=== PATIENT | male | born 1985 | race Caucasian/White ===

== ENCOUNTER 2016-08-23 10:32 | Inpatient (IN) | payer OTHER ==
[~2016-08-23] VITALS: Ht 170.2 cm; Wt 100.0 kg
[2016-08-23] MEDS ORDERED: MoRPHine SULFATE 10 MG/ML CARP/VIAL IV STA (10:53)
[2016-08-23] MEDS ORDERED: ONDANSETRON INJ 2 MG/ML 2 ML VIAL IV STA ×2 (10:53→12:10)
[2016-08-23 11:04] LABS: BASO % 0.6 %; BASO ABS # 0.05 K/uL (0-0.2); COMPLETE YES; EOS % 4.6 %; HEMATOCRIT 46.9 % (42-52); IG% 0.2 %; LYMPH % 27.3 %; LYMPH ABS # 2.26 K/uL (1.2-3.4); MEAN CELL VOLUME 85.4 fL (80-100); MEAN CORPUSCULAR HEMOGLOBIN 30.4 pg (25-34); MEAN CORPUSCULAR HGB CONC 35.6 g/dl (32-36); MEAN PLATELET VOLUME 9.4 fL (7.4-10.4); MONO % 5.3 %; PLATELET COUNT 315 K/uL (130-400); RED BLOOD COUNT 5.49 M/uL (4.7-6.1); WHITE BLOOD COUNT 8.27 K/uL (4.8-10.8)
[2016-08-23 11:12] LABS: PROTHROMBIN TIME (PATIENT) 10.8 SECONDS (9.0-12.0)
[2016-08-23 11:15] LABS: CALCIUM 9.4 mg/dl (8.5-10.1); CREATININE 1.2 mg/dl (0.60-1.40); POTASSIUM 3.9 mmol/L (3.5-5.1)
--- NOTE | 2016-08-23 11:53 | DIAGNOSTIC IMAGING REPORT ---
Right upper quadrant ultrasound GALLBLADDER-ABD LIMITED CLINICAL HISTORY: ABDOMINAL PAIN/GI pain TECHNIQUE: Ultrasound COMPARISON STUDY: None FINDINGS: Fatty infiltration of liver. Normal gallbladder. Common bile duct 4 mm. Pancreas and right kidney unremarkable. IMPRESSION: Fatty infiltration of liver. Otherwise negative study Electronically signed by: Gerardo Chambers M.D. 08/23/2016 11:52 AM Dictated Date/Time: 08/23/2016 11:49 AM
[2016-08-23] MEDS ORDERED: MoRPHine SULFATE 4 MG/ML 1 ML CARP\\VIAL IV STA (11:55)
[2016-08-23] MEDS ORDERED: OPTIRAY 320 IV PRN (12:15)
[2016-08-23] MEDS ORDERED: MoRPHine SULFATE 10 MG/ML CARP/VIAL IV PRN (12:45)
--- NOTE | 2016-08-23 15:12 | DIAGNOSTIC IMAGING REPORT ---
CT ABD/PELVIS IV AND ORAL CONT CLINICAL HISTORY: Upper abdominal pain. Vomiting. Family history of Crohn's disease. COMPARISON STUDY: 01/13/2015 TECHNIQUE: Following the IV administration of 93 mL of Optiray-320, CT scan of the abdomen and pelvis was performed from the lung bases to the proximal femurs. Images are reviewed in the axial, sagittal, and coronal planes. IV contrast was administered without complication. CT DOSE: 585.43 mGy.cm FINDINGS: Lower chest: There is a small hiatal hernia. The lung bases are clear. Liver: There is a nonspecific 1 cm hypodensity within the right hepatic lobe superiorly. The portal and hepatic veins appear patent. There is no ductal dilatation. Gallbladder: Unremarkable. Spleen: Normal in size and attenuation. Pancreas: Unremarkable. Adrenal glands: Unremarkable. Kidneys: There is symmetric renal cortical enhancement. The kidneys are normal in size without hydronephrosis. Bowel: There are no transition zones indicate bowel obstruction. There is no pathologic bowel wall thickening. There are no findings to indicate acute diverticulitis. There is no evidence of acute appendicitis. Peritoneum: There is no intraperitoneal free air or abdominal ascites. There are small fat-containing hernias versus lipomatous inguinal canals Vasculature: The abdominal aorta is normal in course and caliber. Adenopathy: None. Pelvic viscera: The bladder, and pelvic viscera are unremarkable. Skeletal structures: No destructive osseous lesions are seen. IMPRESSION: 1. No evidence of bowel obstruction. No evidence of free air 2. Nonspecific 1 cm hepatic hypodensity. This exceeds water attenuation and is therefore indeterminate 3. No evidence of pathologic bowel wall thickening 4. Normal appendix 5. No evidence of diverticulitis Electronically signed by: Mathew Powers M.D. 08/23/2016 3:10 PM Dictated Date/Time: 08/23/2016 3:01 PM
[2016-08-23 15:55] LABS: URINE APPEARANCE CLEAR (CLEAR); URINE BILIRUBIN NEG (NEG); URINE COLOR YELLOW; URINE NITRITE NEG (NEG); URINE PH 5.5 (4.5-7.5); URINE SPECIFIC GRAVITY > 1.045 (1.000-1.030); UROBILINOGEN NEG (NEG)
[2016-08-23] MEDS ORDERED: METOCLOPRAMIDE HCL INJ 5 MG/ML 2 ML VIAL IV STA (15:56)
[2016-08-23 16:02] LABS: MANUAL MICROSCOPIC REQUIRED? NO; REVIEW REQ? NO
[2016-08-23] MEDS ORDERED: SODIUM CHLORIDE 0.9% 1000ML 1,000 ML IV SCH (16:15)
[2016-08-23] MEDS ORDERED: ACETAMINOPHEN 325 MG TAB PO PRN (16:15)
[2016-08-23] MEDS ORDERED: ONDANSETRON INJ 2 MG/ML 2 ML VIAL IV PRN (16:15)
[2016-08-23] MEDS ORDERED: ZNTT/150 PO (16:17)
[2016-08-23] MEDS ORDERED: IV FLUIDS COMPLETED PRN (16:30)
[2016-08-23] MEDS ORDERED: METOCLOPRAMIDE HCL INJ 5 MG/ML 2 ML VIAL IV PRN (16:30)
--- NOTE | 2016-08-23 16:43 | History and Physical ---
History & Physical Date & Time of Service: Aug 23, 2016 at 16:34 Chief Complaint: Nausea, Vomiting, Diarrhea, Abdominal Pain Primary Care Physician: Matt Barone M.D. History of Present Illness 31 year old male who presents to the ER with reports of nausea, vomiting, diarrhea, and abdominal pain. Patient reports his symptoms have been going on for the past 5 days. He reports they have been flaring every other day. He reports his pain is mostly located in the RUQ and epigastric area however does have some generalized abdominal pain from the persistent vomiting. He denies hematemesis or coffee ground emesis. No BRBPR or dark tarry stools. He denies fever and chills. No chest pain or shortness of breath. He denies lightheadedness, dizziness, and syncopal events. He denies any urinary symptoms. In the ER, patient received Zofran and Morphine. He reports almost total resolution of his symptoms however was given crackers and juice and symptoms returned. He had RUQ US and CT abd/pelvis that are unremarkable. Labs are unremarkable. Vitals are stable. Past Medical/Surgical History Medical Problems: (1) GERD (gastroesophageal reflux disease) Status: Chronic Family History FH: Crohn's disease SISTER GRANDFATHER Social History Smoking Status: Former Smoker Alcohol Use: occasionally Drug Use: marijuana Multi-Drug Resistant Organisms History of MDRO: No Allergies Coded Allergies: BEE STING (Unverified Allergy, Mild, 08/23/16) Home Medications Scheduled Omeprazole (Omeprazole), 1 TAB PO DAILY Scheduled PRN Ranitidine (Zantac), 150 MG PO BID PRN for Dyspepsia Review of Systems 10 point review of systems was completed with the pertinent positives and negatives noted per the HPI Physical Exam Vital Signs Date Time Temp Pulse Resp B/P Pulse Ox O2 Delivery O2 Flow Rate FiO2 08/23/16 16:08 36.3 60 16 176/101 99 Room Air 08/23/16 14:04 62 18 128/81 96 Room Air 08/23/16 13:47 45 08/23/16 12:49 53 18 158/100 100 Room Air 08/23/16 11:53 55 20 171/102 98 Room Air 08/23/16 11:04 68 08/23/16 10:39 36.6 56 18 157/95 100 Room Air General Appearance: + mild distress (vomiting during exam) Head: normocephalic Eyes: normal inspection ENT: hearing grossly normal Neck: supple, no JVD Respiratory/Chest: lungs clear, normal breath sounds, no respiratory distress Cardiovascular: regular rate, rhythm, no edema, normal peripheral pulses Abdomen/GI: normal bowel sounds, soft, + tenderness (generalized) Extremities/Musculoskelatal: normal inspection, no calf tenderness Neurologic/Psych: no motor/sensory deficits, alert, normal mood/affect, oriented x 3 Skin: normal color, warm/dry Diagnostics Laboratory Results Results Past 24 Hours Test 08/23/16 10:40 08/23/16 15:30 Range/Units White Blood Count 8.27 4.8-10.8 K/uL Red Blood Count 5.49 4.7-6.1 M/uL Hemoglobin 16.7 14.0-18.0 g/dL Hematocrit 46.9 42-52 % Mean Corpuscular Volume 85.4 80-100 fL Mean Corpuscular Hemoglobin 30.4 25-34 pg Mean Corpuscular Hemoglobin Concent 35.6 32-36 g/dl Platelet Count 315 130-400 K/uL Mean Platelet Volume 9.4 7.4-10.4 fL Neutrophils (%) (Auto) 62.0 % Lymphocytes (%) (Auto) 27.3 % Monocytes (%) (Auto) 5.3 % Eosinophils (%) (Auto) 4.6 % Basophils (%) (Auto) 0.6 % Neutrophils # (Auto) 5.12 1.4-6.5 K/uL Lymphocytes # (Auto) 2.26 1.2-3.4 K/uL Monocytes # (Auto) 0.44 0.11-0.59 K/uL Eosinophils # (Auto) 0.38 0-0.5 K/uL Basophils # (Auto) 0.05 0-0.2 K/uL RDW Standard Deviation 40.6 36.4-46.3 fL RDW Coefficient of Variation 12.9 11.5-14.5 % Immature Granulocyte % (Auto) 0.2 % Immature Granulocyte # (Auto) 0.02 0.00-0.02 K/uL Prothrombin Time 10.8 9.0-12.0 SECONDS Prothromb Time International Ratio 1.0 0.9-1.1 Activated Partial Thromboplast Time 25.4 21.0-31.0 SECONDS Partial Thromboplastin Ratio 1.0 Sodium Level 142 136-145 mmol/L Potassium Level 3.9 3.5-5.1 mmol/L Chloride Level 106 98-107 mmol/L Carbon Dioxide Level 28 21-32 mmol/L Anion Gap 8.0 3-11 mmol/L Blood Urea Nitrogen 17 7-18 mg/dl Creatinine 1.20 0.60-1.40 mg/dl Est Creatinine Clear Calc Drug Dose 102.2 ml/min Estimated GFR () 92.8 Estimated GFR (Non- 80.1 BUN/Creatinine Ratio 14.0 10-20 Random Glucose 102 70-99 mg/dl Calcium Level 9.4 8.5-10.1 mg/dl Total Bilirubin 1.8 0.2-1 mg/dl Direct Bilirubin 0.3 0-0.2 mg/dl Aspartate Amino Transf (AST/SGOT) 18 15-37 U/L Alanine Aminotransferase (ALT/SGPT) 41 12-78 U/L Alkaline Phosphatase 60 45-117 U/L Total Protein 8.2 6.4-8.2 gm/dl Albumin 4.5 3.4-5.0 gm/dl Lipase 208 73-393 U/L Urine Color YELLOW Urine Appearance CLEAR CLEAR Urine pH 5.5 4.5-7.5 Urine Specific [place] > 1.045 1.000-1.030 Urine Protein NEG NEG Urine Glucose (UA) NEG NEG Urine Ketones 3+ NEG Urine Occult Blood NEG NEG Urine Nitrite NEG NEG Urine Bilirubin NEG NEG Urine Urobilinogen NEG NEG Urine Leukocyte Esterase NEG NEG Diagnostic Radiology RUQ US IMPRESSION: Fatty infiltration of liver. Otherwise negative study CT ABD/PELVIS IMPRESSION: 1. No evidence of bowel obstruction. No evidence of free air 2. Nonspecific 1 cm hepatic hypodensity. This exceeds water attenuation and is therefore indeterminate 3. No evidence of pathologic bowel wall thickening 4. Normal appendix 5. No evidence of diverticulitis Impression Assessment and Plan INTRACTABLE N/V/D, ABDOMINAL PAIN - admit to med/surg - patient presenting with intermittent N/V/D and abdominal pain x 5 days; imaging and labs in ED unremarkable - likely viral gastroenteritis - check stool studies - supportive care with IVF, antiemetics; try to avoid narcotics - clear liquid diet DVT PROPHYLAXIS - SCDs DISPO - In my clinical judgment this beneficiary meets acute admission criteria, established by [facility], that includes being hospitalized through two midnights. ATTENDING ADDENDUM delayed entry date of service as noted above care coordinated with ROSANGELA Yip please refer to her notes for full details, I agree with her notes patient seen and examined, records reviewed by myself as well on exam, patient seen resting in bed abdominal pain somewhat improved, no active nausea on my exam tolerating Gatorade no other symptoms VS noted and reviewed oriented x 3 , not in distress, speaks in sentences with no effort nor accessory muscle use normal rate, regular rhythm, no murmurs clear breath sounds bilaterally non distended, soft, nontender no bipedal edema, erythema, warmth no neuro deficits Hg 16.7 Crea 1.2 ASSESSMENT/PLAN> PERSISTENT NAUSEA AND ABDOMINAL PAIN - refer to GI for possible EGD - Protonix other diagnoses and plan of care as per ROSANGELA Yip's notes Eric Garcia MD VTE Prophylaxis VTE Risk Assessment Done? Y/N: Yes Risk Level: Low
[2016-08-23] MEDS: KETOROLAC TROMETHAMINE 30 MG/ML VIAL IV PRN ×2 (17:12→23:46)
[2016-08-23] MEDS ORDERED: PANTOprazole INJ 40 MG in SYRINGE 0 ML IV SCH (19:30)
[2016-08-23 19:38] VITALS: BP 117/70; PULSE 76; TEMP 36.9; O2SAT 93
[2016-08-23] MEDS: D5NSS + 20MEQ KCL 1,000 ML IV SCH (21:04)
[2016-08-23 23:13] VITALS: BP 115/72; PULSE 72; TEMP 36.8; O2SAT 98
[2016-08-24] VITALS (8 sets, daily range): BP systolic 112–176; BP diastolic 72–103; PULSE 52–79; TEMP 36.7–37.2; O2SAT 98–99; Ht 170.2 cm; Wt 100.0 kg
[2016-08-24] MEDS: D5NSS + 20MEQ KCL 1,000 ML IV SCH ×2 (04:17→12:12)
[2016-08-24] MEDS: KETOROLAC TROMETHAMINE 30 MG/ML VIAL IV PRN (07:20)
[2016-08-24 07:29] LABS: HEMATOCRIT 40.1 % (42-52); MEAN CORPUSCULAR HEMOGLOBIN 29.9 pg (25-34); MEAN CORPUSCULAR HGB CONC 35.2 g/dl (32-36); MEAN PLATELET VOLUME 9.4 fL (7.4-10.4); PLATELET COUNT 263 K/uL (130-400); RED BLOOD COUNT 4.72 M/uL (4.7-6.1); WHITE BLOOD COUNT 10.36 K/uL (4.8-10.8)
[2016-08-24 07:56] LABS: BUN/CREATININE RATIO 11.8 (10-20); CALCIUM 8.4 mg/dl (8.5-10.1); CREATININE 0.93 mg/dl (0.60-1.40); POTASSIUM 3.7 mmol/L (3.5-5.1)
[2016-08-24] MEDS ORDERED: PROPOFOL IV EMULSION 10 MG/ML 20 ML VIAL IV ONE (08:48)
[2016-08-24] MEDS ORDERED: LIDOCAINE HCL 2% 2 ML VIAL (20MG/ML) ONE (08:48)
[2016-08-24] MEDS ORDERED: FENTANYL CITRATE INJ 50 MCG/1 ML 2 ML VIAL ONE (09:00)
[2016-08-24] MEDS ORDERED: ONDANSETRON INJ 2 MG/ML 2 ML VIAL ONE (09:00)
[2016-08-24] MEDS ORDERED: MIDAZOLAM HCL 1 MG/ML 2ML VIAL ONE (09:00)
--- NOTE | 2016-08-24 09:52 | Anesthesiology Progress Note ---
Anesthesia Post Op Note Date & Time Aug 24, 2016 at 09:52 Vital Signs Pain Intensity: 0 Vital Signs Past 12 Hours Date Time Temp Pulse Resp B/P Pulse Ox O2 Delivery O2 Flow Rate FiO2 08/24/16 09:37 73 18 129/75 98 Room Air 08/24/16 09:22 88 16 128/58 93 Room Air 08/24/16 08:48 36.5 54 20 169/92 100 Room Air 08/24/16 08:31 36.8 52 20 176/95 99 Room Air 08/24/16 08:23 36.8 52 20 176/95 Room Air 99 08/24/16 07:20 99 Room Air 08/24/16 07:19 36.7 56 22 159/103 99 Room Air 154/96 08/24/16 02:44 36.8 72 18 115/72 Room Air 08/23/16 23:13 36.8 72 18 115/72 98 Room Air Notes Mental Status: alert / awake / arousable, participated in evaluation Pt Amnestic to Procedure: Yes Nausea / Vomiting: adequately controlled Pain: adequately controlled Airway Patency, RR, SpO2: stable & adequate BP & HR: stable & adequate Hydration State: stable & adequate Anesthetic Complications: no major complications apparent
--- NOTE | 2016-08-24 10:04 | Gastrointestinal Consultation ---
Gastrointestinal Consultation Date of Consultation: Aug 24, 2016 Attending Physician: Dr. Garcia Consulting Physician: Dr. Lyons Reason for Consultation: Persistent nausea and vomiting History of Present Illness Patient is a 31 year old male with no significant PMHx who works as a regional flatbed truck driver and c/o several month hx of GERD admitted with 5 day hx of persistent N/ V for which GI has been consulted. He tried OTC Ranitidine and Pepto Bismol with intermittent relief. He had not purchased ranitidine OTC recently due to cost. Pt denies nicotine use but does smoke marijuana on a regular basis ( daily use but none since 5 days ago). He denies significant ETOH use, no NSAIDs recently, stopped drinking coffee recently due to exacerbation of GERD sx , denies routine caffeine use. Notes symptoms seem to be worse in AM upon awakening. He can be awakened at night due to GERD/epigastric pain which they results in bilious vomiting. Denies recent exposure to sick contacts. Reports no change in bowel habits. Denies hematemesis, melena or unexplained weight loss. Has not had much relief with IV Zofran. He's been kept NPO for possible EGD today. ED work up including labs, UA, CT A/P and US RUQ was unrevealing for any acute process. Past Medical/Surgical History GERD Past Medical History: GERD Past Surgical History: unknown Family History FH: Crohn's disease SISTER GRANDFATHER Colon cancer - paternal GF Breast Cancer Social History Smoking Status: Former Smoker Alcohol Use: occasionally (denies regular ETOH use, only on occassion) Drug Use: marijuana (daily) Occupation Status: employed Allergies Coded Allergies: BEE STING (Unverified Allergy, Mild, 08/23/16) Current Medications Home Meds and Scripts Medications Dose Route/Sig Max Daily Dose Days Date Category Zantac (Ranitidine HCl) 150 Mg Tab 150 Mg PO BID PRN 08/23/16 Reported Review of Systems Constitutional: No chills, No fever Eyes: No problem reported ENT: No pain on swallowing, No sore throat, No trouble swallowing Respiratory: No cough Cardiac: No chest pain Abdomen: + see HPI Musculoskeletal: No problem reported Male : No problem reported Neuro: No problem reported Psych: No problem reported Heme: No problem reported Endo: No problem reported Skin: No problem reported Physical Exam Date Time Temp Pulse Resp B/P Pulse Ox O2 Delivery O2 Flow Rate FiO2 08/24/16 09:37 73 18 129/75 98 Room Air 08/24/16 09:22 88 16 128/58 93 Room Air 08/24/16 08:48 36.5 54 20 169/92 100 Room Air 08/24/16 08:31 36.8 52 20 176/95 99 Room Air 08/24/16 08:23 36.8 52 20 176/95 Room Air 99 08/24/16 07:20 99 Room Air 08/24/16 07:19 36.7 56 22 159/103 99 Room Air 154/96 08/24/16 02:44 36.8 72 18 115/72 Room Air 08/23/16 23:13 36.8 72 18 115/72 98 Room Air 08/23/16 19:38 36.9 76 18 117/70 93 Room Air 08/23/16 18:22 65 18 126/65 99 Room Air 08/23/16 16:08 36.3 60 16 176/101 99 Room Air 08/23/16 14:04 62 18 128/81 96 Room Air 08/23/16 13:47 45 08/23/16 12:49 53 18 158/100 100 Room Air 08/23/16 11:53 55 20 171/102 98 Room Air 08/23/16 11:04 68 08/23/16 10:39 36.6 56 18 157/95 100 Room Air General Appearance: WD/WN, + mild distress (intermittent wretching noted while examined at bedside) Eyes: PERRL ENT: normal ENT inspection, hearing grossly normal Neck: supple Respiratory/Chest: lungs clear, normal breath sounds, no respiratory distress Cardiovascular: regular rate, rhythm Abdomen: normal bowel sounds, soft, + tenderness (mid and epigastric tenderness noted, no rebound or guarding, no HSM or mass palpated) Extremities: normal range of motion Neurologic/Psych: alert, normal mood/affect, oriented x 3 Skin: normal color, warm/dry, no rash Laboratory Results Last 24 Hours Test 08/23/16 10:40 08/23/16 15:30 08/24/16 06:45 White Blood Count 8.27 K/uL 10.36 K/uL Red Blood Count 5.49 M/uL 4.72 M/uL Hemoglobin 16.7 g/dL 14.1 g/dL Hematocrit 46.9 % 40.1 % Mean Corpuscular Volume 85.4 fL 85.0 fL Mean Corpuscular Hemoglobin 30.4 pg 29.9 pg Mean Corpuscular Hemoglobin Concent 35.6 g/dl 35.2 g/dl Platelet Count 315 K/uL 263 K/uL Mean Platelet Volume 9.4 fL 9.4 fL Neutrophils (%) (Auto) 62.0 % Lymphocytes (%) (Auto) 27.3 % Monocytes (%) (Auto) 5.3 % Eosinophils (%) (Auto) 4.6 % Basophils (%) (Auto) 0.6 % Neutrophils # (Auto) 5.12 K/uL Lymphocytes # (Auto) 2.26 K/uL Monocytes # (Auto) 0.44 K/uL Eosinophils # (Auto) 0.38 K/uL Basophils # (Auto) 0.05 K/uL RDW Standard Deviation 40.6 fL 40.3 fL RDW Coefficient of Variation 12.9 % 13.1 % Immature Granulocyte % (Auto) 0.2 % Immature Granulocyte # (Auto) 0.02 K/uL Prothrombin Time 10.8 SECONDS Prothromb Time International Ratio 1.0 Activated Partial Thromboplast Time 25.4 SECONDS Partial Thromboplastin Ratio 1.0 Sodium Level 142 mmol/L 145 mmol/L Potassium Level 3.9 mmol/L 3.7 mmol/L Chloride Level 106 mmol/L 111 mmol/L Carbon Dioxide Level 28 mmol/L 22 mmol/L Anion Gap 8.0 mmol/L 12.0 mmol/L Blood Urea Nitrogen 17 mg/dl 11 mg/dl Creatinine 1.20 mg/dl 0.93 mg/dl Est Creatinine Clear Calc Drug Dose 102.2 ml/min 129.7 ml/min Estimated GFR () 92.8 126.3 Estimated GFR (Non- 80.1 109.0 BUN/Creatinine Ratio 14.0 11.8 Random Glucose 102 mg/dl 108 mg/dl Calcium Level 9.4 mg/dl 8.4 mg/dl Total Bilirubin 1.8 mg/dl 1.3 mg/dl Direct Bilirubin 0.3 mg/dl 0.2 mg/dl Aspartate Amino Transf (AST/SGOT) 18 U/L 12 U/L Alanine Aminotransferase (ALT/SGPT) 41 U/L 28 U/L Alkaline Phosphatase 60 U/L 48 U/L Total Protein 8.2 gm/dl 6.5 gm/dl Albumin 4.5 gm/dl 3.4 gm/dl Lipase 208 U/L Urine Color YELLOW Urine Appearance CLEAR Urine pH 5.5 Urine Specific [place] > 1.045 Urine Protein NEG Urine Glucose (UA) NEG Urine Ketones 3+ Urine Occult Blood NEG Urine Nitrite NEG Urine Bilirubin NEG Urine Urobilinogen NEG Urine Leukocyte Esterase NEG Impression Patient is a 31 year old male with persistent N/V Plan DDx: GERD, esophagitis, PUD, gastroenteritis, hyperemesis cannabinoid syndrome Plan: EGD today Will change Reglan to routine IV q 6 hours instead of PRN Protonix IV BID If no improvement with these changes, consider dose of Emend this is likely secondary to routine marijuana use and he was educated to stop smoking marijuana. ATTESTATION: I have performed a history and physical examination of this patient and reviewed the electronic record. Specifically, on history, the patient is a regular user of cannabis, but has not had previous episodes of persistent nausea and vomiting. Nonetheless, in the absence alternative etiologies, the most likely cause is cannabinoid hyperemesis syndrome. I have discussed the case with Octavia Higuera PA-C. The above note reflects my findings, conclusions, and recommendations. Romel Lyons MD
--- NOTE | 2016-08-24 10:50 | EMERGENCY ROOM VISIT NOTE ---
ED Visit Note First contact with patient: 10:38 Chief Complaint: Vomiting and stomach pain. History of Present Illness: Mr. Richey is a 31 year-old white male who ambulates into the ED accompanied by his girlfriend complaining of bilateral upper quadrant abdominal pain with epigastric and right upper quadrant prominence his nausea/vomiting. Historically patient reports history of GERD; he reports he used to take Prilosec with relief of his discomfort but recently switched to Zantac. Additionally he does report his grandfather and sister have a history of Crohn' s disease; he reports that his sister was feeling well and then came into the emergency department with similar symptoms and within 24-48 hours she required a hemicolectomy because of her Crohn's disease. Patient reports last 5 days he has been having upper abdominal pain. He reports the pain has been intermittent and waxing and waning in intensity. He reports the first 3 days of his illness his pain started and last for approximately one hour and then self resolved. Over the last 2 days the pain has been constant but still wax and wanes in intensity. He describes his pain as if someone is drilling into his upper abdomen. He rates his discomfort 6/ 10. Pain is nonradiating. Pain worsens with eating and improves after he vomits. Associated with his pain he reports he has been having nausea and vomiting with up to 8 episodes of vomiting over the last 12 hours. He describes his vomitus has bilious and on one episode he felt it was blood tinged. Additionally he reports he has noted some black stools the first day of the severe pain which is subsequently resolve does report he sees black specks in his stool. He has not taken any medications to relieve his symptoms. Associated with the symptoms she reports when he vomits he feels chills and intermittently has episodes of diaphoresis but is unsure if he is having fevers. Patient denies skin eruptions, skin color changes, upper respiratory tract symptoms, shortness of breath, chest pain, diarrhea, constipation, urinary symptoms, hematuria, back/flank pain. Review of Systems: As noted above in history of present illness. All body systems were reviewed and found to be negative as noted above. Past Medical History: Pilonidal abscess, GERD. Current Medications: Zantac. Allergies to Medications: Patient denies. Social History: Patient is not employed; he lives with his girlfriend and feels safe in his environment; he denies tobacco use and admits to alcohol use. Physical Examination: Vital Signs: Date Time Temp Pulse Resp B/P Pulse Ox O2 Delivery O2 Flow Rate FiO2 08/23/16 16:08 36.3 60 16 176/101 99 Room Air 08/23/16 14:04 62 18 128/81 96 Room Air 08/23/16 13:47 45 08/23/16 12:49 53 18 158/100 100 Room Air 08/23/16 11:53 55 20 171/102 98 Room Air 08/23/16 11:04 68 08/23/16 10:39 36.6 56 18 157/95 100 Room Air GENERAL: 31-year-old female in mild to moderate distress due to pain, nontoxic- appearing, afebrile and hemodynamically stable. NEUROLOGICAL: Awake, alert and oriented to person, place and time. Answering questions appropriately and following commands. Normal gait. Good hand eye coordination. SKIN: Warm, diaphoretic and pink. No soft tissue eruptions or trauma noted. HEENT: Atraumatic and normocephalic. PERRLA. Sclera white and conjunctiva pink. Oral cavity moist and pink. Pharynx is nonerythematous or edematous. Speech normal. No lymphadenopathy. Trachea midline. No jugular venous distention. BACK: No tenderness over the bony spine. No CVA tenderness. THORAX: Lungs sounds are clear to auscultation and equal bilaterally with symmetrical chest wall. No wheezing, rales or rhonchi. No crepitus, tenderness , subcutaneous air or deformities noted. HEART: Regular rate and rhythm. No gallops, rubs or murmurs are appreciated. ABDOMEN: Flat and soft with moderate tenderness in the epigastrium and right upper quadrant and mild tenderness in the left upper quadrant. Positive bowel sounds in all quadrants. No guarding, rigidity or organomegaly. RECTAL: No external tags or hemorrhoids. Normal rectal tone. No palpable rectal masses. Prostrate was smooth, firm and nontender. Heme-negative stools. EXTREMITIES: Moves all extremities well on command and with purpose. All distal neurovascular statuses are intact and equal bilaterally. ED Course: Patient is assessed as noted above. Laboratory Testing: Test 08/23/16 10:40 08/23/16 15:30 Range/Units White Blood Count 8.27 4.8-10.8 K/uL Red Blood Count 5.49 4.7-6.1 M/uL Hemoglobin 16.7 14.0-18.0 g/dL Hematocrit 46.9 42-52 % Mean Corpuscular Volume 85.4 80-100 fL Mean Corpuscular Hemoglobin 30.4 25-34 pg Mean Corpuscular Hemoglobin Concent 35.6 32-36 g/dl Platelet Count 315 130-400 K/uL Mean Platelet Volume 9.4 7.4-10.4 fL Neutrophils (%) (Auto) 62.0 % Lymphocytes (%) (Auto) 27.3 % Monocytes (%) (Auto) 5.3 % Eosinophils (%) (Auto) 4.6 % Basophils (%) (Auto) 0.6 % Neutrophils # (Auto) 5.12 1.4-6.5 K/uL Lymphocytes # (Auto) 2.26 1.2-3.4 K/uL Monocytes # (Auto) 0.44 0.11-0.59 K/uL Eosinophils # (Auto) 0.38 0-0.5 K/uL Basophils # (Auto) 0.05 0-0.2 K/uL RDW Standard Deviation 40.6 36.4-46.3 fL RDW Coefficient of Variation 12.9 11.5-14.5 % Immature Granulocyte % (Auto) 0.2 % Immature Granulocyte # (Auto) 0.02 0.00-0.02 K/uL Prothrombin Time 10.8 9.0-12.0 SECONDS Prothromb Time International Ratio 1.0 0.9-1.1 Activated Partial Thromboplast Time 25.4 21.0-31.0 SECONDS Partial Thromboplastin Ratio 1.0 Sodium Level 142 136-145 mmol/L Potassium Level 3.9 3.5-5.1 mmol/L Chloride Level 106 98-107 mmol/L Carbon Dioxide Level 28 21-32 mmol/L Anion Gap 8.0 3-11 mmol/L Blood Urea Nitrogen 17 7-18 mg/dl Creatinine 1.20 0.60-1.40 mg/dl Est Creatinine Clear Calc Drug Dose 102.2 ml/min Estimated GFR () 92.8 Estimated GFR (Non- 80.1 BUN/Creatinine Ratio 14.0 10-20 Random Glucose 102 70-99 mg/dl Calcium Level 9.4 8.5-10.1 mg/dl Total Bilirubin 1.8 0.2-1 mg/dl Direct Bilirubin 0.3 0-0.2 mg/dl Aspartate Amino Transf (AST/SGOT) 18 15-37 U/L Alanine Aminotransferase (ALT/SGPT) 41 12-78 U/L Alkaline Phosphatase 60 45-117 U/L Total Protein 8.2 6.4-8.2 gm/dl Albumin 4.5 3.4-5.0 gm/dl Lipase 208 73-393 U/L Urine Color YELLOW Urine Appearance CLEAR CLEAR Urine pH 5.5 4.5-7.5 Urine Specific [place] > 1.045 1.000-1.030 Urine Protein NEG NEG Urine Glucose (UA) NEG NEG Urine Ketones 3+ NEG Urine Occult Blood NEG NEG Urine Nitrite NEG NEG Urine Bilirubin NEG NEG Urine Urobilinogen NEG NEG Urine Leukocyte Esterase NEG NEG RUQ ultrasound: Was reviewed by myself and read by the radiologist showing no acute signs of cholecystitis. No gallstones or ductal dilatation. No gallbladder wall thickening. Fatty infiltration of the liver. Pancreas and kidney appear normal. Contrast Abdominal/Pelvic CT: Was reviewed by myself and read by the radiologist showing no evidence of bowel obstruction, free air, appendicitis, diverticulitis or bowel wall thickening. Radiologist does note a 1 cm hepatic mass of questionable etiology. Patient was hydrated with 2 L of normal saline and received a total of 16 mg of morphine, 8 mg of Zofran and 10 mg of Reglan IV for his symptoms. Patient was reassessed multiple times during his stay in the emergency department. Patient's case was reviewed with Dr. Montilla; we agreed on diagnostic approach, treatment, disposition and plan. Patient was trialed with juice and crackers after his CT and he developed pain and vomiting. Patient's case was consulted with case management and Ms. Arron Yip, PAC [facility], for medical observation/admission. Patient was educated about tonight's findings. Clinical Impression: Irretractable nausea/vomiting. Acute upper abdominal pain. Decision-Making: Initially my differential diagnosis I considered cholecystitis , hepatitis, pancreatitis, gastritis, bowel obstruction, perforated viscus, pneumonia, pyelonephritis and other causes. Disposition and Plan: Patient be brought in the hospital by the [facility]; please see their notes and orders for final disposition and plan.
[2016-08-24] MEDS: METOCLOPRAMIDE HCL INJ 5 MG/ML 2 ML VIAL IV. SCH ×2 (10:58→17:16)
[2016-08-24] MEDS ORDERED: PROMETHAZINE HCL INJ 12.5 MG in SODIUM CHLORIDE 0.9% 50ML 50 ML IV PRN (14:00)
[2016-08-24] MEDS ORDERED: FAMOTIDINE IV INJ 20 MG in DEXTROSE 5% 100ML 100 ML IV SCH (14:00)
[2016-08-24] MEDS ORDERED: OMEP20TA PO (19:13)
--- NOTE | 2016-08-24 19:16 | Discharge Instructions ---
Discharge Instructions Date of Service Aug 24, 2016. Admission Reason for Admission: Intractable Nausea And Vomiting Discharge Discharge Diagnosis / Problem: NAUSEA /ABDOMINAL PAIN Discharge Goals Goal(s): Improve disease control, Diagnostic testing Activity Recommendations Activity Limitations: resume your previous activity . Instructions / Follow-Up Instructions / Follow-Up HOSPITAL FOLLOW UP WITH YOUR FAMILY PHYSICIAN IN A WEEK , PLEASE CALL OFFICE FOR APPOINTMENT NEED TO QUIT SMOKING MARIJUANA -POSSIBLY CAUSING ABDOMINAL PAIN /NAUSEA HAVE SMALL FREQUENT MEALS THROUGH OUT THE DAY AVOID SPICY FOOD , LIMIT CAFFEINE TAKE OMEPRAZOLE IN EMPTY STOMACH BEFORE BREAKFAST FOR ACID REFLUX Current Hospital Diet Patient's current hospital diet: Regular Diet, Low Fat Diet Discharge Diet Recommended Diet: Regular Diet Procedures Procedures Performed: EGD with duodenal, gastric and ge junction bx Pending Studies Studies pending at discharge: no Medical Emergencies . Who to Call and When: Medical Emergencies: If at any time you feel your situation is an emergency, please call 911 immediately. . Non-Emergent Contact Non-Emergency issues call your: Primary Care Provider . . "Provider Documentation" section prepared by Ellie Hilario. VTE Core Measure Inpt VTE Proph given/why not?: Sugar Isbell, SCD's
--- NOTE | 2016-08-24 19:24 | Discharge Summary ---
Discharge Summary Date of Service Aug 24, 2016. Discharge Summary Admission Date: Aug 23, 2016 at 16:28 Discharge Date: Aug 24, 2016 Discharge Disposition: Home Principal Diagnosis: NAUSEA /ABDOMINAL PAIN Procedures: Procedures Performed: EGD with duodenal, gastric and ge junction by Dr Lyons Consultations: GI Medication Reconciliation New Medications: Omeprazole (Omeprazole) 20 Mg Tab 1 TAB PO DAILY for 30 Days, #30 TAB 1 Refill Continued Medications: Ranitidine (Zantac) 150 Mg Tab 150 MG PO BID PRN for Dyspepsia, TAB Admission Information HPI (per Admitting provider): 31 year old male who presents to the ER with reports of nausea, vomiting, diarrhea, and abdominal pain. Patient reports his symptoms have been going on for the past 5 days. He reports they have been flaring every other day. He reports his pain is mostly located in the RUQ and epigastric area however does have some generalized abdominal pain from the persistent vomiting. He denies hematemesis or coffee ground emesis. No BRBPR or dark tarry stools. He denies fever and chills. No chest pain or shortness of breath. He denies lightheadedness, dizziness, and syncopal events. He denies any urinary symptoms. In the ER, patient received Zofran and Morphine. He reports almost total resolution of his symptoms however was given crackers and juice and symptoms returned. He had RUQ US and CT abd/pelvis that are unremarkable. Labs are unremarkable. Vitals are stable. Physical Exam (per Admitting): General Appearance: + mild distress (vomiting during exam) Head: normocephalic Eyes: normal inspection ENT: hearing grossly normal Neck: supple, no JVD Respiratory/Chest: lungs clear, normal breath sounds, no respiratory distress Cardiovascular: regular rate, rhythm, no edema, normal peripheral pulses Abdomen/GI: normal bowel sounds, soft, + tenderness (generalized) Extremities/Musculoskelatal: normal inspection, no calf tenderness Neurologic/Psych: no motor/sensory deficits, alert, normal mood/affect, oriented x 3 Skin: normal color, warm/dry Hospital Course feels much better since afternoon , had EGD earlier today , abdominal pain , epigastric discomfort, nausea has resolved finished Clear liquid diet tray with no GI symptoms wants to go home tonight if possible P/E: gen : no sign of distress HEENT: sclera non icteric HT : regular S1/S2 Lungs; CTA abdomen: soft , non tender , no epigastric discomfort or pain on palpation Ext ; no rash or deformity Neuro: no focal neurological deficit A/P : INTRACTABLE N/V/D, ABDOMINAL PAIN - patient presenting with intermittent N/V/D and abdominal pain x 5 days; CT abdomen /pelvis , liver ultrasound -normal study , labs unremarkable -possible due to Marijuana induced , pt mentions of smoking Marijuana in a daily basis -appreciate input from GI -s/p EGD -no pathology noted -symptom resolved in the afternoon , abdominal pain , nausea has resolved no diarrhea , no bowel movement since admission -had normal bowel movement yesterday prior to arrival to ED -tolerated Clears well , diet advanced to regular -pt is counselled to quit smoking Marijuana -will help to resolve GI symptoms ordered for Omeprazole 20 mg Daily for GERD symptom -will have out pt follow up with Family Physician -stable to be discharged home today DVT PROPHYLAXIS - SCDs DISPOSITION ; Discharge home today Total time spent on discharge = 35 mins This includes examination of the patient, discharge planning, medication reconciliation, and communication with other providers. Discharge Instructions Discharge Instructions Date of Service Aug 24, 2016. Admission Reason for Admission: Intractable Nausea And Vomiting Discharge Discharge Diagnosis / Problem: NAUSEA /ABDOMINAL PAIN Discharge Goals Goal(s): Improve disease control, Diagnostic testing Activity Recommendations Activity Limitations: resume your previous activity . Instructions / Follow-Up Instructions / Follow-Up HOSPITAL FOLLOW UP WITH YOUR FAMILY PHYSICIAN IN A WEEK , PLEASE CALL OFFICE FOR APPOINTMENT NEED TO QUIT SMOKING MARIJUANA -POSSIBLY CAUSING ABDOMINAL PAIN /NAUSEA HAVE SMALL FREQUENT MEALS THROUGH OUT THE DAY AVOID SPICY FOOD , LIMIT CAFFEINE TAKE OMEPRAZOLE IN EMPTY STOMACH BEFORE BREAKFAST FOR ACID REFLUX Current Hospital Diet Patient's current hospital diet: Regular Diet, Low Fat Diet Discharge Diet Recommended Diet: Regular Diet Procedures Procedures Performed: EGD with duodenal, gastric and ge junction bx Pending Studies Studies pending at discharge: no Medical Emergencies . Who to Call and When: Medical Emergencies: If at any time you feel your situation is an emergency, please call 911 immediately. . Non-Emergent Contact Non-Emergency issues call your: Primary Care Provider . . "Provider Documentation" section prepared by Ellie Hilario. VTE Core Measure Inpt VTE Proph given/why not?: T.E.D. Stockings, SCD's Additional Copies To Matt Barone M.D.
[2016-08-24] MEDS ORDERED: PANTOprazole INJ 40 MG in SYRINGE 0 ML IV SCH (21:00)
--- NOTE | 2016-08-25 00:45 | GI REPORT ---
Procedure Date: 08/24/2016 8:52 AM Procedure: Upper GI endoscopy Indications: Nausea with vomiting Medicines: Monitored Anesthesia Care Complications: No immediate complications. Estimated blood loss: None. Estimated Blood Loss: Estimated blood loss: none. Procedure: Pre-Anesthesia Assessment: - Prior to the procedure, a History and Physical was performed, and patient medications, allergies and sensitivities were reviewed. The patient's tolerance of previous anesthesia was reviewed. - ASA Grade Assessment: II - A patient with mild systemic disease. After obtaining informed consent, the endoscope was passed under direct vision. Throughout the procedure, the patient's blood pressure, pulse, and oxygen saturations were monitored continuously. The scope was introduced through the mouth, and advanced to the third part of the duodenum. Small bowel enteroscopy was deemed necessary. The upper GI endoscopy was accomplished with ease. The patient tolerated the procedure well. Findings: Severe esophagitis with ulceration was found at the gastroesophageal junction at 37 cm from the incisors. Biopsies were taken with a cold forceps for histology. A small hiatus hernia was present. Patchy mild inflammation characterized by adherent blood was found in the entire examined stomach. Biopsies were taken with a cold forceps for Helicobacter pylori testing. The examined duodenum was normal. Biopsies for histology were taken with a cold forceps for evaluation of celiac disease. Verification of patient identification for the specimens was done by the physician and nurse using the patient's name, date and medical record number. Impression: - Severe reflux esophagitis. Biopsied. - Small hiatus hernia. - Mild gastritis. Biopsied. - Normal examined duodenum. Biopsied. Recommendation: - Return patient to [facility] for ongoing care. Romel Lyons M.D. Romel Lyons MD 08/24/2016 9:25:49 AM This report has been signed electronically. Note Initiated On: 08/24/2016 8:52 AM I attest to the content of the Intraoperative Record and orders documented therein, exceptions below
== END 2016-08-24 20:04 | disposition home or self-care (01) | DRG 392 ==
LOC: ENRESERVDT → ENRESERVTM → C.EDB 10:33 → C.MS4W 16:28 → EDBEDREQ 16:43 → C.MS4W 21:57
PROVIDERS: ADMIT Internal Medicine; ATTEND Hospitalist
PROC: 0DB98ZX Excision of Duodenum, Via Natural or Artificial Opening Endoscopic, Diagnostic (ICD-10-PCS; principal; 2016-08-24 09:00)
PROC: 0DB68ZX Excision of Stomach, Via Natural or Artificial Opening Endoscopic, Diagnostic (ICD-10-PCS; principal; 2016-08-24 09:00)
PROC: 0DB48ZX Excision of Esophagogastric Junction, Via Natural or Artificial Opening Endoscopic, Diagnostic (ICD-10-PCS; principal; 2016-08-24 09:00)
DX: K29.70 Gastritis, unspecified, without bleeding (principal); T40.7X2A Poisoning by cannabis (derivatives), intentional self-harm, initial encounter; F12.90 Cannabis use, unspecified, uncomplicated; K21.0 Gastro-esophageal reflux disease with esophagitis; K44.9 Diaphragmatic hernia without obstruction or gangrene; Z83.79 Family history of other diseases of the digestive system; Z79.899 Other long term (current) drug therapy; Z87.891 Personal history of nicotine dependence

== ENCOUNTER 2016-08-27 12:27 | Emergency (ER) | payer OTHER ==
[~2016-08-27] VITALS: Ht 172.7 cm; Wt 94.6 kg
[~2016-08-27 12:27] MED LIST: OMEP20TA PO; ZNTT/150 PO
[2016-08-27 12:30] VITALS: TEMP 37; Ht 172.7 cm; Wt 94.6 kg
[2016-08-27] MEDS ORDERED: ONDANSETRON INJ 2 MG/ML 2 ML VIAL IV STA (12:49)
[2016-08-27] MEDS ORDERED: SODIUM CHLORIDE 0.9% 1000ML 1,000 ML IV STA (12:49)
[2016-08-27 12:56] LABS: BASO % 0.3 %; BASO ABS # 0.03 K/uL (0-0.2); COMPLETE YES; EOS % 0.8 %; IG% 0.2 %; LYMPH % 16.4 %; MEAN CELL VOLUME 82.6 fL (80-100); MEAN CORPUSCULAR HEMOGLOBIN 30.7 pg (25-34); MEAN CORPUSCULAR HGB CONC 37.2 g/dl (32-36); MEAN PLATELET VOLUME 9.2 fL (7.4-10.4); MONO % 7.6 %; NEUT % 74.7 %; PLATELET COUNT 351 K/uL (130-400); RED BLOOD COUNT 5.57 M/uL (4.7-6.1)
[2016-08-27] MEDS ORDERED: PANTOprazole INJ 40 MG in SYRINGE 0 ML IV ONE (13:00)
[2016-08-27] MEDS ORDERED: ALUMINUM/MAGNESIUM SUSP 30 ML UDC ONE (13:00)
[2016-08-27] MEDS ORDERED: GI COCKTAIL PO ONE (13:00)
[2016-08-27] MEDS ORDERED: LIDOCAINE HCL 2% VISC SOLN 20 ML UDC ONE (13:00)
[2016-08-27 13:13] LABS: BUN/CREATININE RATIO 10.4 (10-20); CREATININE 1.1 mg/dl (0.60-1.40); MAGNESIUM 2.1 mg/dl (1.8-2.4); POTASSIUM 3.2 mmol/L (3.5-5.1)
[2016-08-27 13:16] LABS: ALB/GLOB RATIO 1.2 (0.9-2)
--- NOTE | 2016-08-27 14:04 | DIAGNOSTIC IMAGING REPORT ---
[facility] CLINICAL HISTORY: abd pain - n/v COMPARISON STUDY: No previous studies for comparison. FINDINGS: The soft tissues, psoas shadows, renal outlines and intestinal gas pattern appear normal. There is no evidence for bowel obstruction. No abnormal abdominal calcifications are seen. IMPRESSION: Normal study. Electronically signed by: Gerardo Chambers M.D. 08/27/2016 2:03 PM Dictated Date/Time: 08/27/2016 2:02 PM
[2016-08-27 14:39] VITALS: BP 146/86; PULSE 60; O2SAT 99
[2016-08-27] MEDS ORDERED: ONDA4TAB10 SL (14:53)
[2016-08-27] MEDS ORDERED: SUCR5SUS PO (14:53)
[2016-08-27] MEDS ORDERED: PANT40TA PO (14:53)
--- NOTE | 2016-08-27 14:54 | EMERGENCY ROOM VISIT NOTE ---
History First contact with patient: 12:40 Chief Complaint: NAUSEA Stated Complaint: WAS HERE TUESDAY HAVING SAME SYMPTOMS, VOMITING Nursing Triage Summary: Pt admitted here on Tue for intractable vomiting, d/c on . Pt states sx returned night. "All I've been doing is laying in the bathtub. I have tried to take it easy and eat chicken soup. I can't keep anything down." Diffuse abd pain. History of Present Illness The patient is a 31 year old male who presents to the Emergency Department by private vehicle for evaluation of his persistent nausea, vomiting, and upper abdominal discomfort. The patient was recently admitted and discharged after having the same symptoms. He had an EGD performed and was diagnosed with gastritis. He was placed on the second and discharged home. He was feeling better until the last few days he has had worsening nausea and vomiting with associated discomfort. He has had decreased by mouth intake secondary to vomiting. The patient rates his current discomfort as a 7/10. He denies any previous abdominal surgeries. He denies any fevers, chills, headaches, dizziness, lightheadedness, chest pain, palpitations, short of breath, hematemesis, hematochezia, melena, hematuria, or dysuria. The patient does report some recent marijuana use. He is had no similar reaction previously. Review of Systems A complete 10-point Review of Systems was discussed with the patient, with pertinent positives and negatives listed in the History of Present Illness. All remaining Review of Systems questions can be considered negative unless otherwise specified. Past Medical/Surgical History Medical Problems: (1) GERD (gastroesophageal reflux disease) (2) Intractable nausea and vomiting Family History FH: Crohn's disease SISTER GRANDFATHER Social History Smoking Status: Former Smoker Smokeless Tobacco Use: No Alcohol Use: occasionally Drug Use: marijuana Occupation Status: employed Current/Historical Medications Scheduled Omeprazole (Omeprazole), 1 TAB PO DAILY Pantoprazole (Protonix), 40 MG PO DAILY Sucralfate (Carafate), 1 GM PO TID Scheduled PRN Ondasetron Odt (Zofran Odt), 1 TAB SL Q6 PRN for Nausea or Vomiting Allergies Coded Allergies: BEE STING (Unverified Allergy, Mild, 08/27/16) Physical Exam Vital Signs Date Time Temp Pulse Resp B/P Pulse Ox O2 Delivery O2 Flow Rate FiO2 08/27/16 14:39 60 16 146/86 99 08/27/16 12:30 37.0 72 18 154/73 95 Room Air Pain Rating (0-10): 7 Physical Exam VITAL SIGNS - Vital signs and nursing notes were reviewed. GENERAL - 31-year-old male appearing his stated age who is in no acute distress. Communicates well with provider and answers questions appropriately. LUNGS - Chest wall symmetric without accessory muscle use, intercostals retractions, or central cyanosis. Normal vesicular breath sounds CTA B/L. No wheezes, rales, or rhonchi appreciated. CARDIAC - RRR with S1/S2. No murmur, rubs, or gallops appreciated. ABDOMEN - Abdominal contour flat and without pulsations or visible masses. BS normoactive all four quadrants. No tenderness to palpation appreciated throughout. No guarding. No Rebound Tenderness. Negative Rovsing's. Negative Yu's. No palpable masses, hepatosplenomegaly, or ascites noted. EXTREMITIES - No clubbing or peripheral cyanosis. No pretibial edema present. +3 /5 radial and dorsalis pedis pulses palpated throughout. PSYCH - A&Ox3 and cooperates fully with examiner. Pt is very pleasant and interacts well with examiner. Medical Decision & Procedures ER Provider Diagnostic Interpretation: Radiological imaging and reports were reviewed by myself. Radiologist's Interpretation as follows: KUB CLINICAL HISTORY: abd pain - n/v COMPARISON STUDY: No previous studies for comparison. FINDINGS: The soft tissues, psoas shadows, renal outlines and intestinal gas pattern appear normal. There is no evidence for bowel obstruction. No abnormal abdominal calcifications are seen. IMPRESSION: Normal study. Laboratory Results 08/27/16 12:44 Red Blood Count 5.57, Mean Corpuscular Volume 82.6, Mean Corpuscular Hemoglobin 30.7, Mean Corpuscular Hemoglobin Concent 37.2, Mean Platelet Volume 9.2, Neutrophils (%) (Auto) 74.7, Lymphocytes (%) (Auto) 16.4, Monocytes (%) (Auto) 7.6, Eosinophils (%) (Auto) 0.8, Basophils (%) (Auto) 0.3, Neutrophils # (Auto) 8.22, Lymphocytes # (Auto) 1.80, Monocytes # (Auto) 0.84, Eosinophils # (Auto) 0.09, Basophils # (Auto) 0.03 08/27/16 12:44 Test 08/27/16 12:44 White Blood Count 11.00 K/uL (4.8-10.8) Red Blood Count 5.57 M/uL (4.7-6.1) Hemoglobin 17.1 g/dL (14.0-18.0) Hematocrit 46.0 % (42-52) Mean Corpuscular Volume 82.6 fL (80-100) Mean Corpuscular Hemoglobin 30.7 pg (25-34) Mean Corpuscular Hemoglobin Concent 37.2 g/dl (32-36) Platelet Count 351 K/uL (130-400) Mean Platelet Volume 9.2 fL (7.4-10.4) Neutrophils (%) (Auto) 74.7 % Lymphocytes (%) (Auto) 16.4 % Monocytes (%) (Auto) 7.6 % Eosinophils (%) (Auto) 0.8 % Basophils (%) (Auto) 0.3 % Neutrophils # (Auto) 8.22 K/uL (1.4-6.5) Lymphocytes # (Auto) 1.80 K/uL (1.2-3.4) Monocytes # (Auto) 0.84 K/uL (0.11-0.59) Eosinophils # (Auto) 0.09 K/uL (0-0.5) Basophils # (Auto) 0.03 K/uL (0-0.2) RDW Standard Deviation 38.8 fL (36.4-46.3) RDW Coefficient of Variation 12.9 % (11.5-14.5) Immature Granulocyte % (Auto) 0.2 % Immature Granulocyte # (Auto) 0.02 K/uL (0.00-0.02) Anion Gap 14.0 mmol/L (3-11) Est Creatinine Clear Calc Drug Dose 108.5 ml/min Estimated GFR () 103.1 Estimated GFR (Non- 89.0 BUN/Creatinine Ratio 10.4 (10-20) Calcium Level 10.0 mg/dl (8.5-10.1) Magnesium Level 2.1 mg/dl (1.8-2.4) Total Bilirubin 2.2 mg/dl (0.2-1) Aspartate Amino Transf (AST/SGOT) 15 U/L (15-37) Alanine Aminotransferase (ALT/SGPT) 35 U/L (12-78) Alkaline Phosphatase 61 U/L (45-117) Total Protein 8.3 gm/dl (6.4-8.2) Albumin 4.5 gm/dl (3.4-5.0) Globulin 3.8 gm/dl (2.5-4.0) Albumin/Globulin Ratio 1.2 (0.9-2) Lipase 111 U/L (73-393) Medications Administered Medications (Trade) Dose Ordered Sig/Angela Route Start Time Stop Time Status Last Admin Dose Admin Sodium Chloride 1,000 ml @ 999 mls/hr Q1H1M STAT IV 08/27/16 12:49 08/27/16 13:49 DC 08/27/16 12:49 999 MLS/HR Pantoprazole Sodium/Syringe (Protonix Inj/ Syringe) 10 ml @ 5 mls/min NOW ONCE IV 08/27/16 13:00 08/27/16 13:01 DC 08/27/16 13:28 5 MLS/MIN Ondansetron HCl (Zofran Inj) 4 mg NOW STAT IV 08/27/16 12:49 08/27/16 12:52 DC 08/27/16 13:07 4 MG Al Hydroxide/Mg Hydroxide (Maalox Susp) 30 ml STK-MED ONCE .ROUTE 08/27/16 13:00 08/27/16 13:03 DC 08/27/16 13:08 30 ML Lidocaine HCl (Viscous Lidocaine 2% Soln) 20 ml STK-MED ONCE .ROUTE 08/27/16 13:00 08/27/16 13:03 DC 08/27/16 13:08 20 ML ED Course Patient was seen and evaluated by myself. Labs were drawn, saline lock in place. Previous emergency department visit notes and hospitalizations were reviewed. Patient was hydrated with a 1000 mL normal saline bolus. He received IV Protonix, Zofran, and a GI cocktail. KUB was obtained. Laboratory results demonstrated mild psychosis. The patient is not anemic. There are no significant electrolyte abnormalities. His total bili was elevated at 2.2. Liver enzymes within normal limits. I did discuss the case with ROSANGELA Lay with [facility]. She reviewed the patient's case. She agrees with disposition and plan. The patient was reevaluated and is having absolutely no discomfort at this point. His abdomen is soft and nontender. Patient was educated on following up closely with GI from today's visit. He was educated on worrisome symptoms for return visit to the emergency part. Patient discharged home afebrile and in good condition. Medical Decision Given the patient's presentation and stated complaint, I did elect to perform the above-mentioned workup. The patient presents today with nausea, vomiting, and upper abdominal pain. He was recently admitted with similar symptoms. His abdomen is soft and nontender to palpation. I do not feel that repeat imaging studies are necessary at this point. He does have a mild leukocytosis, however his white count was trending upwards during his recent admission. In addition, the patient has been vomiting which certainly could give us a stress response as well. Otherwise, the patient does have a mild elevation of his total bili of minimal significance at this point. He will follow closely with GI from today's visit. He will be changed to Protonix as well as be provided Zofran for home as well as Carafate. The patient was educated on this and feels much better at this time. He was educated on worrisome symptoms for return visit to the emergency department. Patient discharged home afebrile and in good condition. In the evaluation and treatment of this patient, the following differential diagnoses were considered: Appendicitis, Diverticulitis, Diverticulosis, Colitis , Ischemic Colitis, Inflammatory Bowel Disease, Irritable Bowel Disease, Testicular Torsion, Kidney Stone, Pyelonephritis, Hydronephrosis, Cholecystitis , Ascending Cholangitis, Choledocholithiasis, GERD. Impression Primary Impression: Nausea & vomiting Additional Impression: Abdominal pain Departure Information Dispostion Home / Self-Care Condition GOOD Prescriptions Pantoprazole (Protonix) 40 Mg Tab 40 MG PO DAILY for 30 Days, #30 TAB Prov: West Rodriguez PA-C 08/27/16 Ondasetron Odt (ZOFRAN ODT) 4 Mg Tab 1 TAB SL Q6 Y for Nausea or Vomiting for 5 Days, #20 TAB Prov: West Rodriguez PA-C 08/27/16 Sucralfate (Carafate) 1 Gm/10 Ml Susp 1 GM PO TID for 14 Days, #420 ML Prov: West Rodriguez PA-C 08/27/16 Referrals Matt Barone M.D. (PCP) Romel Lyons M.D. Patient Instructions My [facility] [address] Additional Instructions You have been treated in the Emergency Department for your Abdominal Pain. Laboratory results and Imaging studies have ruled out any emergent or surgical issues that might be causing you this pain. You should take Protonix as prescribed. This is a drug that will help with any possible indigestion that might be contributing to your pain/discomfort. You should take this medicine EVERY day for the best results. This medicine is not intended to be used for immediate relief of symptoms, but rather to reduce the risk of recurrence of symptoms. You have been prescribed Zofran to be used for any nausea or vomiting. Take as prescribed. Please use the Carafate as prescribed. You can consider using TUMS for relief of any indigestion that you might be experiencing. This drug is fast acting and can be used for immediate relief of your indigestion symptoms. You should eat a bland diet for the next few days. Some suggested bland dietary foods: Bananas, Rice, Applesauce, [place], or Boiled Chicken. These foods are easy to digest and help you to recover at a faster rate. All meals for the next few days should be small to grease press helper in bowel rest. For pain control, you can use the following [id number] medicines (if >12 yo): - Regular strength (325mg/tab) Tylenol (acetaminophen) 2 tabs every 4-6 hours as needed. Do not exceed 12 tablets in a 24 hour period. Avoid taking more than 4 grams (4000 mg) of Tylenol per day. This includes any other sources of acetaminophen you may take on a regular basis. - Regular strength (200 mg/tab) Advil (ibuprofen) 1-2 tabs every 4-6 hours as needed. Do not exceed a dose of 3200 mg per day. You should schedule a follow-up appointment with your Primary Care Provider in 2 -3 days for further evaluation from today's Emergency Department visit. Your Primary Care Provider should be involved in the addition of any new medications. Your Primary Care Provider may also refer you to a Lace Cutter, a doctor who specializes in the digestive system. Return to the Emergency Department if your current symptoms worsen despite treatment course outlined above, or if you develop any of the following symptoms : worsening abdominal pain, associated chest or back pain, worsening nausea/ vomiting, dizziness, shortness of breath, blood in your vomit, or fainting. Problem Qualifiers Primary Impression: Nausea & vomiting Vomiting type: unspecified Vomiting Intractability: unspecified Qualified Codes: R11.2 - Nausea with vomiting, unspecified Additional Impression: Abdominal pain Abdominal location: upper abdomen, unspecified Qualified Codes: R10.10 - Upper abdominal pain, unspecified
== END 2016-08-27 15:01 | disposition home or self-care (01) ==
LOC: C.EDB 12:29
DX: R11.2 Nausea with vomiting, unspecified (principal); R10.10 Upper abdominal pain, unspecified; K21.9 Gastro-esophageal reflux disease without esophagitis; Z83.79 Family history of other diseases of the digestive system; Z87.891 Personal history of nicotine dependence; Z79.899 Other long term (current) drug therapy